=== PATIENT | male | born 1960 | race Hispanic/Latino ===

== ENCOUNTER 2019-01-13 18:13 | Emergency (ER) | payer BC ==
[2019-01-13] MEDS ORDERED: Ketorolac Tromethamine 30 MG/ML VIAL ONE (19:02)
--- NOTE | 2019-01-13 19:09 | CT ---
CT CERVICAL SPINE 01/13/[address] of the cervical spine was performed for evaluation following trauma. Axial slices were acqu ired followed by coronal and sagittal reconstructions. No fracture, dislocation, or acute bony change was seen. There is slight disc space narrowing at C6-C 7. The C1 to dens distance is normal and the soft tissues are normal in thickness. There is loss of t he normal cervical lordosis which may be due to muscle spasm. Diffuse degenerative changes are presen t throughout the spine. Findings by level follows: C1-C2: No acute findings. C2-C3: Moderate to severe right foraminal stenosis. There is some fragmentation of bone in the right superior articular facet of C3 that appears to be old. It could be related to either old trauma or me rely osteophytes. C3-C4: Moderate right foraminal stenosis. C4-C5: Severe left facet disease. Moderate to severe left foraminal stenosis. Right foraminal stenosi s is mild. C5-C6: Mild bilateral foraminal stenosis. C6-C7: Moderate right foraminal stenosis. C7-T1: No acute findings. T1-T2: No acute findings. T2-T3: No acute findings. The lung apices are clear and show no pneumothorax. An incidental finding on the scan is opacificatio n in the floor of the left maxillary sinus. IMPRESSION: 1. Loss of normal cervical lordosis which could be due to muscle spasm. 2. Diffuse degenerative changes as noted above. 3. Fragmentation of the right superior articular facet of C3 which is more likely old than new. 4. Opacification of some part of the left maxillary sinus. POS: HOME
--- NOTE | 2019-01-13 19:22 | RAD ---
LEFT KNEE THREE VIEWS: 01/13/19 No fracture was appreciated. No large joint effusion was indicated. There is mild medial joint space narrowing. There probably has been old trauma to the proximal fibular shaft. IMPRESSION: No acute finding. POS: HOME
--- NOTE | 2019-01-13 19:24 | RAD ---
RIGHT KNEE THREE VIEWS: 01/13/19 No fracture or joint effusion was seen. The patella appears intact. There are no acute bony findings. A little bit of periosteal prominence in the proximal tibial shaft posteriorly is most likely longst anding. Mild medial joint space narrowing is present. IMPRESSION: No acute finding. POS: HOME
== END 2019-01-13 19:12 | disposition home or self-care (01) ==
LOC: BURERS 18:13
DX: S13.4XXA Sprain of ligaments of cervical spine, initial encounter (principal); V69.9XXA Occupant (driver) (passenger) of heavy transport vehicle injured in unspecified traffic accident, initial encounter
CPT/HCPCS: 72125; 96374; J1885